=== PATIENT | male | born 1955 | race Caucasian/White ===

== ENCOUNTER → 2021-02-02 15:38 | Outpatient (CLI) | payer OTHER, SELFPAY ==
--- NOTE | ~2021-02-02 | XR_ITS ---
EXAMINATION: XR hip LT 2V w AP pelvis INDICATION: Left hip pain TECHNIQUE: AP view the pelvis and two views of the left hip are obtained. COMPARISON: None available FINDINGS: Bone alignment is normal. There is no fracture. Phleboliths are noted in the pelvis. IMPRESSION: 1. No acute osseous abnormality. Reviewed, dictated and finalized at location A.
--- NOTE | ~2021-02-02 | XR_ITS ---
XR chest 2V DATE: 02/02/2021 16:38 INDICATION: Cough TECHNIQUE: Upright PA and lateral views COMPARISON: None FINDINGS: Left cervical rib. Scoliosis and degenerative change of the thoracic and lumbar spine. Normal heart size. No hilar or mediastinal enlargement. No pulmonary infiltrate or consolidation, pleural effusion or pulmonary vascular congestion or pneumo thorax. IMPRESSION: No active cardiac pulmonary disease Left cervical rib Reviewed, dictated and finalized at location A.
--- NOTE | ~2021-02-02 | XR_ITS ---
EXAMINATION: XR lumbar spine 2-3V DATE: 02/02/2021 16:38 INDICATION: Low back pain TECHNIQUE: Anteroposterior and lateral views of the lumbar spine, and cone-down lateral view of the l umbosacral junction were obtained. COMPARISON: None. FINDINGS: There is mild anterior wedging in the lower thoracic spine and at L1. Vertebral body alignm ent is maintained. There is moderate loss of intervertebral disc space height at L1-2 through L3-4. S mall degenerative osteophytes project from the anterior endplates of multiple vertebral bodies. Mild facet osteoarthritis is noted. IMPRESSION: 1. Mild anterior wedging at the thoracolumbar junction, likely chronic. Moderate lumbar spondylosis. Reviewed, dictated and finalized at location A. IMPRESSION: 1. Mild anterior wedging at the thoracolumbar junction, likely chronic. Moderat e lumbar spondylosis.
== END ==
PROVIDERS: PCP Family Medicine; Visit Provider Nurse Practitioner Family
DX: M54.5 Low back pain (principal); M25.552 Pain in left hip; R05 Cough; M47.816 Spondylosis without myelopathy or radiculopathy, lumbar region; M48.56XA Collapsed vertebra, not elsewhere classified, lumbar region, initial encounter for fracture; Q76.5 Cervical rib
CPT/HCPCS: 71046; 72100; 73502

== ENCOUNTER 2021-05-26 01:06 | Day surgery (SDC) | payer OTHER, SELFPAY ==
[2021-05-06 13:42] VITALS: BMI 29.2
[2021-05-26 07:58] VITALS: BP 150/100; PULSE 94; RESP 17; TEMP 36.8; O2SAT 96
[2021-05-26] MEDS: LACTATED RINGERS 1,000 ML 150 ML IV CONT (08:11)
--- NOTE | 2021-05-26 08:46 | P.PNAN_ITS ---
Anes - Initial Pre Proc Eval Procedure: Operation Date: 05/26/21 09:15 Proposed Procedures p Screening Colonoscopy - Jordy Chappell MD Date/Time: 05/26/21 08:46 Surgeon: Jordy Chappell MD Pre Op Diagnosis: neoplasm screening Patient Data Age: 66 Gender: M Height: 1.83 m Weight: 100.3 kg Last Vital Signs Temp 98.3 F 05/26/21 07:58 Pulse 94 05/26/21 07:58 Resp 17 05/26/21 07:58 BP 150/100 H 05/26/21 07:58 Pulse Ox 96 05/26/21 07:58 Allergies Allergy/AdvReac Type Severity Reaction Status Date / Time No Known Allergies Allergy Verified 05/26/21 07:56 Home Medications Medication Instructions Recorded Confirmed Type aspirin 81 mg chewable tablet 81 mg PO DAILY 09/16/19 05/26/21 History otgsehqdoxun-bvwxvecg-ewnltu tablet 1 tablet PO DAILY 09/16/19 05/26/21 History sildenafil 100 mg tablet 100 mg PO DAILY PRN #9 tablet 10/02/19 05/26/21 Rx fluticasone propionate 50 2 spray NASAL BID #18.2 ml 11/12/19 05/26/21 Rx mcg/actuation nasal spray,suspension rosuvastatin 20 mg tablet 20 mg PO DAILY #30 tablet 02/16/21 05/26/21 Rx Patient hx anesthesia problems: none Family hx anesthesia problems: none Results Review: All pre-operative results and documents have been reviewed as part of the pre-operative evaluation. [facility] Past Medical History Medical History (Updated 02/02/21 @ 15:10 by Drew Bhatia NP) Elevated lipids Family History Family History Father Hypertension Family history of chronic obstructive pulmonary disease, Onset Age: 72 Mother Cerebrovascular accident, Onset Age: 52 Social History Social History Smoking status: Never smoker Second hand tobacco smoke exposure: No Alcohol intake: current Drinks per week: 2 Substance use: never Substance use type: does not use Living arrangements: with family Gender identity (if verbalized by the patient): Male Spiritual care concerns: No Anes - Eval Final PreProcedure Day of Procedure 05/26/21 08:46 Patient weight: obese Heart: regular rate and rhythm Lungs: clear to auscultation Airway: Mallampati scale class II Neurological: alert and oriented Last oral intake: >/= 8 hours ASA classification: II Emergent: no Anesthetic plan: proceed Anesthesia type and monitoring: general GIVS and standard monitoring Results Review: All pre-operative results and documents have been reviewed as part of the pre-operative evaluation. Informed Consent: The patient's anesthetic plan and its attendant risks and benefits were discussed with the patient/family/POA. Questions were solicited and answers provided to the satisfaction of the patient/family/POA.
--- NOTE | 2021-05-26 08:55 | PM.HPGS ---
History of Present Illness History of Present Illness Consent: Risks, benefits, and alternatives have been discussed and questions answered. Patient agrees to proceed with procedure. Chief complaint: neoplasm screening Narrative: Mark Anthony Green is a 66 year old male here for screening colonoscopy, last one about 10 years ago Review of Systems Constitutional: Constitutional: Denies headache(s) and Denies weakness Eyes: Eyes: Denies blurry vision ENT: Reports Normal hearing present, Denies headache(s) and Denies neck pain Cardiovascular: Cardiovascular: Denies chest pain and Denies dyspnea Respiratory: Respiratory: Denies dyspnea Gastrointestinal: Gastrointestinal: Reports no additional gastrointestinal complaints Genitourinary: Genitourinary: Denies dysuria Musculoskeletal: Musculoskeletal: Denies neck pain Integumentary/Breasts: Skin/Breast: Denies dry skin Neurologic: Reports Normal hearing present, Denies headache(s) and Denies weakness Psychiatric: Psychiatric: Denies anxiety Endocrine: Endocrine: Denies change in body appearance Hematologic/Lymphatic: Hematologic/Lymphatic: Denies easy bleeding Allergic/Immunologic: Allergic/Immunologic: Denies urticaria PMFSH Past Medical History Medical History (Updated 02/02/21 @ 15:10 by Drew Bhatia NP) Elevated lipids Family History Family History Father Hypertension Family history of chronic obstructive pulmonary disease, Onset Age: 72 Mother Cerebrovascular accident, Onset Age: 52 Social History Social History Smoking status: Never smoker Second hand tobacco smoke exposure: No Alcohol intake: current Drinks per week: 2 Substance use: never Substance use type: does not use Living arrangements: with family Gender identity (if verbalized by the patient): Male Spiritual care concerns: No Meds Home Medications and Allergies Home Medications Medication Instructions Recorded Confirmed Type aspirin 81 mg chewable tablet 81 mg PO DAILY 09/16/19 05/26/21 History ugcgqmnlcnag-inabtvik-qqidqh tablet 1 tablet PO DAILY 09/16/19 05/26/21 History sildenafil 100 mg tablet 100 mg PO DAILY PRN #9 tablet 10/02/19 05/26/21 Rx fluticasone propionate 50 2 spray NASAL BID #18.2 ml 11/12/19 05/26/21 Rx mcg/actuation nasal spray,suspension rosuvastatin 20 mg tablet 20 mg PO DAILY #30 tablet 02/16/21 05/26/21 Rx Allergies Allergy/AdvReac Type Severity Reaction Status Date / Time No Known Allergies Allergy Verified 05/26/21 07:56 Vital Signs Vital Signs - 24 hr 05/26/21 07:58 Temperature 98.3 F Pulse Rate 94 Respiratory Rate 17 Blood Pressure 150/100 H Pulse Oximetry 96 Exam Const: General: comfortable and no acute distress HENMT: General nose exam: Normal nares present Eyes: General: appearance normal, both eyes and all related structures Neck: Neck: no JVD Resp: Auscultation: clear to auscultation bilaterally Cardio: Rate: regular rate Rhythm: regular rhythm GI: Inspection: non-distended GI Palp: Yes Soft to palpation Skin: General skin exam: normal color Neuro: General: gait normal Speech: normal speech Extrem: General: normal to inspection Psych: Mental Status: mental status grossly normal Assessment and Plan Assessment and plan (1) Screening for malignant neoplasm of colon: Code(s): Z12.11 - Encounter for screening for malignant neoplasm of colon Status: Acute Assessment and Plan: colonoscopy
[2021-05-26 09:18] VITALS: BP 110/81; PULSE 97; RESP 17; O2SAT 94
[2021-05-26 09:28] VITALS: BP 124/82; PULSE 87; RESP 23; O2SAT 96
[2021-05-26 09:38] VITALS: BP 124/88; PULSE 78; RESP 19; O2SAT 97
== END 2021-05-26 09:45 | disposition home or self-care (01) ==
PROVIDERS: PCP Family Medicine; Visit Provider Internal Medicine Gastroenterology
PROC: 0DJD8ZZ Inspection of Lower Intestinal Tract, Via Natural or Artificial Opening Endoscopic (ICD-10-PCS; CPT 45378; principal; 2021-05-26 09:15)
DX: Z12.11 Encounter for screening for malignant neoplasm of colon (principal); D12.3 Benign neoplasm of transverse colon; K57.30 Diverticulosis of large intestine without perforation or abscess without bleeding; K64.8 Other hemorrhoids; E78.5 Hyperlipidemia, unspecified; Z79.82 Long term (current) use of aspirin; E66.9 Obesity, unspecified; Z68.30 Body mass index [BMI] 30.0-30.9, adult
CPT/HCPCS: 45380; 45385; 88305; J2704; J7120

== ENCOUNTER → 2021-09-27 12:40 | Outpatient (CLI) | payer OTHER, SELFPAY ==
--- NOTE | ~2021-09-27 | US_ITS ---
EXAMINATION: US carotid duplex BI DATE: 09/27/2021 13:10 INDICATION: Carotid stenosis. Atherosclerosis. TECHNIQUE: Grayscale, color Doppler, and pulsed Doppler images of the cervical carotid arteries were obtained. The degree of vessel stenosis is placed in one of the following categories: normal, <50%, 5 0-69%, >=70% but less than near-occlusion, near-occlusion, or total occlusion. Note that percent sten osis relative to normal distal artery lumen diameter is indirectly measured from velocity measurement s as described by Phoenix, et al. Radiology 2003; 229:340-346. Notes: Normal: Peak systolic velocity <125 centimeters/sec and no plaque <50%. Peak systolic velocity <125 ( EDV <40; ICA/CCA PSV ratio <2.0; used these factors only a tandem lesions or low cardiac output or co ntralateral disease) 50-69 %: PSV 125-230 (EDV 40-100; ratio 2-4) >= 70% but less than near occlusion: PSV greater than 230 (EDV > 100; ratio> 4.0) Near Occlusion: PSV that is variable; markedly narrowed lumen Occlusion: Absent flow on color/spectral Doppler and no lumen on leal scale. COMPARISON: None. FINDINGS: RIGHT: The right common carotid artery (CCA) peak systolic velocity (PSV) is 70 cm/s. The right internal car otid artery (ICA) PSV is 51 cm/s. The right ICA end-diastolic velocity (EDV) is 21 cm/s. The right IC A/CCA PSV ratio is 0.7. The external carotid artery (ECA) PSV is 74 cm/s. There is antegrade flow in the right vertebral artery. LEFT: The left CCA PSV is 54 cm/s. The left ICA PSV is 63 cm/s. The left ICA EDV is 21 cm/s. The left ICA/C CA PSV ratio is 1.2. The ECA PSV is 93 cm/s. There is antegrade flow in the left vertebral artery. IMPRESSION: 1. Less than 50% stenosis in the right internal carotid artery by sonographic criteria. 2. Less than 50% stenosis in the left internal carotid artery by sonographic criteria. Reviewed, dictated and finalized at location A. IMPRESSION: 1. Less than 50% stenosis in the right internal carotid artery by sonographic c joselyn. 2. Less than 50% stenosis in the left internal carotid artery by sonographic kaitlyn hernández.
== END ==
PROVIDERS: PCP Family Medicine; Visit Provider Internal Medicine Cardiovascular Disease
DX: R09.89 Other specified symptoms and signs involving the circulatory and respiratory systems (principal); I65.23 Occlusion and stenosis of bilateral carotid arteries
CPT/HCPCS: 93880

== ENCOUNTER → 2023-03-16 07:36 | Outpatient (CLI) | payer MEDICARE, OTHER, SELFPAY ==
--- NOTE | ~2023-03-16 | MR_ITS ---
EXAMINATION: MR knee LT wo con DATE: 03/16/2023 08:12 INDICATION: Right knee pain. TECHNIQUE: Magnetic resonance imaging (MRI) of the right knee was performed without intravenous contr ast. Sequences included axial PD-weighted FS FSE, coronal PD-weighted FSE and PD-weighted FS FSE, sag ittal PD-weighted FSE, and sagittal T2-weighted FS FSE. COMPARISON: Right knee radiographs 03/02/2023 FINDINGS: Medial compartment: There is a complex tear involving posterior horn of medial meniscus with torn bucket-handle component in the intercondylar notch. There is full-thickness cartilage loss of femoral condyle involving the central articular surface adjacent to the posterior horn of the meniscus with mild subchondral edema- like marrow signal intensity. There is cartilage surface irregularity of tibial condyle. Lateral compartment: Lateral meniscus is normal. There is cartilage surface irregularity of femoral condyle and tibial con dyle. Patellofemoral compartment: There is cartilage surface irregularity of patella. There is partial-thickness cartilage loss of medi al trochlea. There are tiny osteophytes. Ligaments and tendons: The anterior and posterior cruciate ligaments are normal. There is an 11 mm ganglion cyst adjacent to the distal attachment of anterior cruciate ligament. There are changes of prior sprains of medial co llateral ligament and fibular collateral ligament characterized by thickening and increased signal in tensity proximally. There is mild patellar tendinopathy. Fluid: There is a moderate-sized knee joint effusion. There is a large Oliva's cyst. IMPRESSION: 1. Severe chondrosis of medial compartment and mild chondrosis of lateral and patellofemoral compartm ents. 2. Complex tear of medial meniscus including a displaced torn bucket-handle component. 3. Moderate-sized knee joint effusion. 4. Large Oliva's cyst. Reviewed, dictated and finalized at location E. IMPRESSION: 1. Severe chondrosis of medial compartment and mild chondrosis of lateral and p atellofemoral compartments. 2. Complex tear of medial meniscus including a displaced torn bucket-handle com ponent. 3. Moderate-sized knee joint effusion. 4. Large Oliva's cyst.
--- NOTE | ~2023-03-16 | MR_ITS ---
EXAMINATION: MR knee RT wo con DATE: 03/16/2023 08:26 INDICATION: Right knee pain. TECHNIQUE: Magnetic resonance imaging (MRI) of the right knee was performed without intravenous contr ast. Sequences included axial PD-weighted FS FSE, coronal PD-weighted FSE and PD-weighted FS FSE, sag ittal PD-weighted FSE, and sagittal T2-weighted FS FSE. COMPARISON: Right knee radiographs 03/02/2023 FINDINGS: Medial compartment: There is a complex tear involving the body and posterior horn of medial meniscus. There is partial-th ickness cartilage loss of tibial condyle, deep at the central and medial articular surface with mild subchondral edema-like marrow signal intensity. There is partial-thickness cartilage loss of femoral condyle, deep at the central, medial, and posterior articular surface with mild subchondral edema-lik e signal intensity. Osteophytes are noted. Lateral compartment: There is a radial tear of lateral meniscus involving the posterior horn. There is shallow partial-thi ckness cartilage loss of tibial condyle and femoral condyle. There are tiny osteophytes. Patellofemoral compartment: There is cartilage fissuring involving patellar lateral facet. There is partial-thickness cartilage l oss of trochlea, deep at the central and medial trochlea. Osteophytes are noted. Ligaments and tendons: Anterior cruciate ligament is less steep than Blumensaat line, consistent with tear. There is a 10 mm ganglion cyst adjacent to the distal attachment of the cruciate ligament. There is a partial tear of posterior cruciate ligament characterized by thickening. There are changes of prior sprains of media l collateral ligament and fibular collateral ligament characterized by thickening and increased signa l intensity. There is mild patellar tendinopathy. Fluid: There is a small knee joint effusion. There is a moderate-sized Oliva's cyst. There is mild prepatell ar and superficial infrapatellar bursitis. IMPRESSION: 1. Moderate chondrosis of medial and patellofemoral compartments and mild chondrosis of lateral rain rtment. 2. Tears of medial and lateral menisci. 3. Complete tear of anterior cruciate ligament. 4. Partial tear of posterior cruciate ligament. 5. Small knee joint effusion. 6. Moderate-sized Oliva's cyst. Reviewed, dictated and finalized at location E. IMPRESSION: 1. Moderate chondrosis of medial and patellofemoral compartments and mild chond rosis of lateral compartment. 2. Tears of medial and lateral menisci. 3. Complete tear of anterior cruciate ligament. 4. Partial tear of posterior cruciate ligament. 5. Small knee joint effusion. 6. Moderate-sized Oliva's cyst.
== END ==
PROVIDERS: PCP Family Medicine; Visit Provider Orthopaedic Surgery
DX: S83.207A Unspecified tear of unspecified meniscus, current injury, left knee, initial encounter (principal); M94.261 Chondromalacia, right knee; S83.241A Other tear of medial meniscus, current injury, right knee, initial encounter; S83.511A Sprain of anterior cruciate ligament of right knee, initial encounter; M25.461 Effusion, right knee; M71.21 Synovial cyst of popliteal space [Baker], right knee; M94.262 Chondromalacia, left knee; S83.232A Complex tear of medial meniscus, current injury, left knee, initial encounter; S83.212A Bucket-handle tear of medial meniscus, current injury, left knee, initial encounter; M25.462 Effusion, left knee; M71.22 Synovial cyst of popliteal space [Baker], left knee
CPT/HCPCS: 73721

== ENCOUNTER 2023-04-17 08:13 | Outpatient (CLI) | payer MEDICARE, OTHER, SELFPAY ==
--- NOTE | 2023-04-17 08:25 | ECG_ITS ---
Measurements Intervals [place] [employer] Rate: 59 P: -7 UT: 162 QRS: -7 QRSD: 84 T: 24 QT: 411 QTc: 410 Interpretive Statements SINUS BRADYCARDIA BASELINE ARTIFACT- II, III, AVF, V4-V6 BORDERLINE ECG NO PREVIOUS ECG AVAILABLE FOR COMPARISON Electronically Signed On 04-17-2023 9:37:35 NP by Nba Cronni D.O.
== END 2023-04-17 08:14 | disposition home or self-care (01) ==
LOC: ANHSURGERY 08:18
PROVIDERS: PCP Family Medicine; Visit Provider Orthopaedic Surgery
DX: Z01.818 Encounter for other preprocedural examination (principal); I10 Essential (primary) hypertension; R00.1 Bradycardia, unspecified
CPT/HCPCS: 93005

== ENCOUNTER 2023-04-18 00:42 | Day surgery (SDC) | payer MEDICARE, OTHER, SELFPAY ==
[2023-04-12 08:02] VITALS: BMI 26.9
--- NOTE | 2023-04-12 08:11 | PC.NURSE ---
PRE-OP INSTRUCTIONS, PLEASE READ CAREFULLY Report to the Outpatient Waiting Room, entrance under the green pavilion located off [facility], at time _1100_ on date _04/18/23_. Planned Procedure Time: _1 PM_. Time changes happen often and if your time is changed the preop area will call you the afternoon before. - You and your visitor will be asked to self-screen and do not enter if you have any COVID symptoms. - A mask is optional within the hospital at this time. Patients may have clear liquids (water, carbonated beverages, clear teas, apple juice) until 3 hours prior to surgery (1000 AM) with a maximum of 20 ounces. - No food from midnight until time of surgery Take the following medications with a SIP of water the morning of surgery: _AMLODIPINE, & NASAL SPRAY IF NEEDED_ DO NOT STOP ANY OF YOUR OTHER PRESCRIPTION MEDICATIONS PRIOR TO SURGERY ?EXCEPT THE FOLLOWING Medications to discontinue per DR. CASILLAS - _ASPIRIN 7 DAYS PRIOR TO SURGERY, PT STATES LAST DOSE TAKEN 04/11/23 PM_ Please no make-up, nail chinese, hairspray, perfume, deodorant, or body powder the day of surgery. No jewelry (including any body piercings) or valuables the day of surgery, leave them at home. Please take a shower or bath the night before, or the morning of, surgery with an antibacterial soap. Wear comfortable, loose fitting clothing. - Jewelry must be removed prior to entering the operating room. Rings and piercings that are not removed may be cut off. - The hospital will not accept responsibility for valuables. - Please leave all valuables, including medications, at home the day of surgery. If you are going home after surgery, a licensed trash collector truck driver must drive you home. - NO public transportation without another adult if you receive anesthesia. - We recommend that an adult stay with you for 24 hours following discharge. - We also recommend that you do not drive, make important decision, drink alcoholic beverages, or take any drugs that were not prescribed by your health care provider for at least 24 hours after your discharge time. Follow any additional instructions given to you from your surgeon. If you or anyone in your household have experienced Covid symptoms in the past week, please notify your surgeon or the nurse liaison at the phone number below for possible testing. Telephone instructions given to _PATIENT_and asked if any additional questions and then verbalized understanding. Patient advised to call surgeon office or pre surgery nurse liaison [phone] if any additional questions.
--- NOTE | 2023-04-17 14:42 | WPDANESEPPF ---
Anes - Initial Pre Proc Eval Procedure: Operation Date: 04/18/23 13:00 Proposed Procedures p Left Knee Arthroscopy with Partial Medial Meniscectomy - Johan Whittaker MD Date/Time: 04/17/23 14:42 Surgeon: Johan Whittaker MD Pre Op Diagnosis: Lt Knee Medial Meniscus tear Patient Data Age: 67 Gender: M Height: 1.83 m Weight: 90 kg Allergies Allergy/AdvReac Type Severity Reaction Status Date / Time No Known Allergies Allergy Verified 04/18/23 10:53 Home Medications Medication Instructions Recorded Confirmed Type aspirin 81 mg chewable tablet 81 mg PO DAILY 09/16/19 04/12/23 History tbdfzmiiutil-kzfpqqht-agalxo 1 tablet PO DAILY 09/16/19 04/18/23 History tablet (Multivitamin 50 Plus tablet) fluticasone propionate 50 2 spray intranasal BID #18.2 mL 11/12/19 04/18/23 Rx mcg/actuation nasal spray,suspension (Allergy Relief (fluticasone)) rosuvastatin 20 mg tablet (Crestor) 20 mg PO DAILY #30 tabs 07/27/21 04/18/23 Rx amlodipine 5 mg tablet 5 mg PO DAILY 09/16/22 04/18/23 History tamsulosin 0.4 mg capsule 0.4 mg PO DAILY 11/14/22 04/18/23 History hydrocodone 5 mg-acetaminophen 325 1 - 2 tablet PO Q4-6H PRN pain #30 04/18/23 Rx mg tablet tabs Patient hx anesthesia problems: none Family hx anesthesia problems: none Results Review: All pre-operative results and documents have been reviewed as part of the pre-operative evaluation. [facility] Past Medical History Medical History (Updated 04/18/23 @ 07:21 by LLOYD Arora) Elevated lipids Essential hypertension Osteoarthritis Family History Family History Father Hypertension Family history of chronic obstructive pulmonary disease, Onset Age: 72 Mother Cerebrovascular accident, Onset Age: 52 Social History Social History Smoking status: Never smoker Second hand tobacco smoke exposure: No Alcohol intake: current Drinks per week: 2 Alcohol use details: 3-5 BEERS/MONTH Substance use: never Substance use type: does not use Lack of Transportation: No Lack of Food: Never True Current Housing: I Have Housing Concerned About Future Housing: No Difficulty Paying Gas/Electric Bills: No Difficulty Paying for Meds: No Currently Unemployed: No Education: Master's Degree or Higher Difficulty w/ Childcare or Family Care: No Living arrangements: with family Gender identity (if verbalized by the patient): Male Spiritual care concerns: No Anes - Eval Final PreProcedure Day of Procedure 04/17/23 14:42 Patient weight: overweight Heart: regular rate and rhythm Lungs: clear to auscultation Airway: Mallampati scale class II Neurological: alert and oriented Last oral intake: >/= 8 hours ASA classification: II Emergent: no Anesthetic plan: proceed Anesthesia type and monitoring: general LMA and standard monitoring Results Review: All pre-operative results and documents have been reviewed as part of the pre-operative evaluation. Informed Consent: The patient's anesthetic plan and its attendant risks and benefits were discussed with the patient/family/POA. Questions were solicited and answers provided to the satisfaction of the patient/family/POA.
--- NOTE | 2023-04-18 10:04 | WPDHPUPDATE1 ---
History and Physical Update Update Date/Time: 04/18/23 10:04 History and Physical has been reviewed, including an updated exam of the patient. There are NO changes in the patient's condition. Risks, benefits, and alternatives have been discussed and questions answered. Patient agrees to proceed with procedure.
[2023-04-18 10:48] VITALS: BP 136/85; PULSE 58; RESP 20; TEMP 36; O2SAT 100
[2023-04-18] MEDS: ACETAMINOPHEN 500 MG TABLET 1000 MG PO (11:26)
[2023-04-18] MEDS: LACTATED RINGERS 1,000 ML 30 ML IV CONT ×2 (11:30→13:55)
[2023-04-18] MEDS: KETOROLAC 15 MG/ML VIAL (*BKC) IV PUSH (11:34)
[2023-04-18] MEDS: ceFAZolin 2 GM/D5W 50 ML 2 GM/50 ML BAG IVPB (13:05)
[2023-04-18] MEDS: BUPIVACAINE/EPINEPHRINE 0.5% 50 ML VIAL 20 ML INFILTRATE (13:32)
[2023-04-18 13:55] VITALS: BP 97/64; PULSE 48; RESP 12; TEMP 36.2; O2SAT 100
[2023-04-18 14:10] VITALS: BP 90/60; PULSE 75; RESP 20; O2SAT 100
[2023-04-18 14:25] VITALS: BP 103/68; PULSE 57; RESP 20; O2SAT 98
--- NOTE | 2023-04-18 14:31 | W.PM.PROC2 ---
Procedure Note - Detailed Date of Procedure 04/18/23 Pre-op Diagnosis Lt Knee Medial Meniscus tear Post-op Diagnosis Same Procedure Performed Arthroscopic partial medial meniscectomy, left knee. Surgeon Johan Whittaker MD Anesthesia General Findings Complex posterior horn meniscus tear. Subtotal posterior meniscectomy. The upper leaflet was viable and preserved. Medial femur chondromalacia grade 2/3, medial tibia grade 1. Lateral femur chondromalacia grade 0, lateral tibia grade 1. Description of Procedure The patient was identified and the surgical site confirmed and signed in the preoperative holding area. Antibiotics were started per protocol. He was brought to the operative room and transferred to the OR table. A general anesthetic was administered. Supine position with the operative lower extremity position in the leg lehman after placement of a well padded tourniquet. The leg support was lowered and the contralateral limb was supported with a soft bolster. The knee was prepped and draped in the usual sterile fashion. A time-out was performed. The portal sites were marked and infiltrated with 0.5% Marcaine 20 mL. The limb was exsanguinated and the tourniquet inflated to 300 mL Hg. Standard inferolateral and inferomedial portals were established. Inflow was obtained with the saline pump. The camera was introduced. Diagnostic inspection of the joint was accomplished. The meniscus was debrided with the arthroscopic shaver and punches until stable. The radiofrequency probe was also used for further d?bridement. The arthroscopic instruments were removed. The tourniquet released and wounds closed with subcutaneous 4-0 Monocryl absorbable suture. Steri strips and a sterile dressing were applied. A light elastic wrap was placed. The patient was extubated and brought to the recovery room in stable condition. Estimated Blood Loss 5 Drains No Complications No immediate complications Condition Stable Disposition PACU [facility] Billing Surgery - Charge Forward: Surgery Billing
[2023-04-18 14:34] VITALS: BP 123/79; PULSE 70; RESP 18
[2023-04-18] MEDS: oxyCODONE HCL (*CRX) 5 MG TAB IR PO (14:59)
[2023-04-18 15:00] VITALS: BP 110/62; PULSE 51; RESP 18
== END 2023-04-18 15:20 | disposition home or self-care (01) ==
PROVIDERS: PCP Family Medicine; Visit Provider Orthopaedic Surgery
PROC: (CPT 29870; principal; 2023-04-18 13:00)
DX: M23.222 Derangement of posterior horn of medial meniscus due to old tear or injury, left knee (principal); M94.262 Chondromalacia, left knee; I10 Essential (primary) hypertension; Z79.82 Long term (current) use of aspirin; Z79.891 Long term (current) use of opiate analgesic; Z82.49 Family history of ischemic heart disease and other diseases of the circulatory system; X58.XXXA Exposure to other specified factors, initial encounter
CPT/HCPCS: 29881; A9270; J0690; J1100; J1885; J2250; J2405; J2704; J3010; J7120

== ENCOUNTER → 2023-06-08 08:35 | Outpatient (CLI) | payer MEDICARE, OTHER, SELFPAY ==
--- NOTE | ~2023-06-08 | MR_ITS ---
EXAMINATION: MR shoulder RT wo con DATE: 06/08/2023 09:10 INDICATION: Right shoulder pain TECHNIQUE: Magnetic resonance imaging (MRI) of the right shoulder was performed without intravenous c ontrast. Sequences included axial PD-weighted FS FSE, coronal oblique PD-weighted FS FSE, coronal obl ique T2-weighted FS FSE, sagittal PD-weighted FS FSE, and sagittal T1-weighted SE. COMPARISON: None. FINDINGS: Coracoacromial arch: The acromion undersurface is curved in morphology (type II). The coracoacromial ligament is normal. M oderate right acromioclavicular osteoarthritis with abnormal contour to the lateral head of the right clavicle which could be related to prominent primarily cephalad directed hypertrophic changes relate d to osteoarthritis or an old healed fracture deformity. Small degenerative loose osteochondral body versus heterotopic ossicle along the cephalad joint capsule. Rotator cuff: Moderate supraspinatus and mild infraspinatus tendinopathy without tear. The teres minor tendon is no rmal. Moderate subscapularis tendinopathy without tear. Normal rotator cuff muscle bulk and signal. Biceps tendon, glenoid labrum and glenohumeral cartilage: Mild to moderate tendinopathy and longitudinal split tearing of the long head biceps tendon. Diffuse circumferential tear of the glenoid labrum. Focal partial-thickness chondral ulceration at the centra l aspect of the glenoid. Deep chondral fissuring along the inferior glenoid. Small marginal osteophyt e along the inferior and posterior glenoid. Mild partial-thickness cartilage loss with smooth chondra l surface along the medial aspect of the humeral head. Fluid: Small amount of fluid and mild synovitis in the long head biceps tendon sheath consistent with mild b icipital tenosynovitis. Physiologic amount fluid in the glenohumeral joint space. No loose osteochond ral bodies. Mild increased fluid signal in the subacromial/subdeltoid bursa consistent with mild burs itis. Bones: Normal marrow signal with no edema. No acute fracture or pathologic marrow replacing process. IMPRESSION: 1. Moderate rotator cuff tendinopathy without discrete tear. 2. Mild glenohumeral osteoarthritis with diffuse circumferential tear of the glenoid labrum. 3. Bicipital tenosynovitis with mild to moderate tendinopathy and longitudinal split tearing of the l serg head biceps tendon. 4. Moderate acromial clavicular osteoarthritis with prominent cephalad directed hypertrophic changes which could be degenerative in etiology or sequela of old trauma. Reviewed, dictated and finalized at location A. ADJUSTER IMPRESSION: 1. Moderate rotator cuff tendinopathy without discrete tear. 2. Mild glenohumeral osteoarthritis with diffuse circumferential tear of the gl enoid labrum. 3. Bicipital tenosynovitis with mild to moderate tendinopathy and longitudinal split tearing of the long head biceps tendon. 4. Moderate acromial clavicular osteoarthritis with prominent cephalad directed hypertrophic changes which could be degenerative in etiology or sequela of old trauma.
== END ==
PROVIDERS: PCP Family Medicine; Visit Provider Family Medicine
DX: M67.811 Other specified disorders of synovium, right shoulder (principal); M19.011 Primary osteoarthritis, right shoulder; S43.431A Superior glenoid labrum lesion of right shoulder, initial encounter; M75.21 Bicipital tendinitis, right shoulder; X58.XXXA Exposure to other specified factors, initial encounter
CPT/HCPCS: 73221

== ENCOUNTER 2023-08-15 10:09 | Outpatient (CLI) | payer MEDICARE, OTHER, SELFPAY ==
--- NOTE | ~2023-08-15 | XR_ITS ---
EXAMINATION: XR knee RT 3V DATE: 08/15/2023 10:28 INDICATION: Tear of lateral meniscus, current injury. TECHNIQUE: 3 views of right knee including standing views were obtained. COMPARISON: Right knee radiographs 09/15/2021 FINDINGS: Bone alignment is normal. No fracture. There is moderate osteoarthritis of medial compartme nt and mild osteoarthritis of patellofemoral compartment. There is chondrocalcinosis of the menisci. No knee joint effusion. IMPRESSION: 1. Moderate right knee osteoarthritis. Reviewed, dictated and finalized at location E.
== END 2023-08-15 10:10 | disposition home or self-care (01) ==
PROVIDERS: PCP Family Medicine; Visit Provider Orthopaedic Surgery
DX: S83.281A Other tear of lateral meniscus, current injury, right knee, initial encounter (principal); M17.11 Unilateral primary osteoarthritis, right knee; X58.XXXA Exposure to other specified factors, initial encounter
CPT/HCPCS: 73562

== ENCOUNTER 2024-03-12 10:39 | Outpatient (CLI) | payer MEDICARE, OTHER, SELFPAY ==
--- NOTE | ~2024-03-12 | XR_ITS ---
XR shoulder RT min 2V Ordering provider: Johan Whittaker MD History: . M67.813 - Other specified disorders of tendon, right shou... . Comparison: None. FINDINGS: BONES: No acute fracture or dislocation. JOINT SPACES: The acromioclavicular joint shows osteoarthritic changes. Small bony fragment or osteop hyte seen superiorly.. The glenohumeral joint is normal. SOFT TISSUES: Normal. IMPRESSION: No acute osseous abnormality right shoulder. Reviewed, dictated and finalized at location A.
== END 2024-03-12 10:40 | disposition home or self-care (01) ==
PROVIDERS: PCP Orthopaedic Surgery; Visit Provider Orthopaedic Surgery
DX: M67.813 Other specified disorders of tendon, right shoulder (principal)
CPT/HCPCS: 73030

== ENCOUNTER 2024-08-01 07:50 | Outpatient (CLI) | payer MEDICARE, OTHER, SELFPAY ==
--- OUTSIDE RECORDS SUMMARY | 2024-08-01 07:57 | XMS_ITS | Clinical Summary ---
Author Organization [facility] [place] [address] Address [address] [place] [id number] Care Team Providers Care Roof Fixer Name Role Phone Lamont Latif MD Primary Care Provider [phone] Nba Cronin DO Unavailable Jordy Felix MD Unavailable + Allergies No known active allergies Medications multivit-min/f olic/vit K/lycop (ONE-A-DAY MEN'S 50 PLUS ORAL) Take by mouth Active fluticasone propionate (FLONASE) 50 mcg/actuation nasal spray Administer 1 spray into each nostril daily Active aspirin 81 mg enteric coated tablet Take 1 tablet (81 mg total) by mouth daily Active benzonatate (TESSALON) 100 mg capsuleIndicat ions:Cough Take 1 capsule (100 mg total) by mouth 3 (three) times a day as needed for cough 42 capsule 02/08/20 24 Active amLODIPine (NORVASC) 5 mg tabletIndicati ons:Hypertensi on, essential TAKE 1 TABLET (5 MG TOTAL) BY MOUTH DAILY. 100 tablet 1 02/17/20 24 Active tamsulosin (FLOMAX) 0.4 mg extended release capsule TAKE 1 CAPSULE BY MOUTH EVERY DAY 90 capsule 1 02/22/20 24 Active rosuvastatin (CRESTOR) 20 mg tablet TAKE 1 TABLET BY MOUTH EVERY DAY 90 tablet 1 07/25/19 25 Active rosuvastatin (CRESTOR) 20 mg tablet TAKE 1 TABLET BY MOUTH EVERY DAY 90 tablet 1 01/29/20 24 025 Discontinued Active Problems Problem Noted Date Diagnosed Date Encounter for Medicare annual wellness exam 05/22 Assessment & Plan (07/31/2023 9:04 AM CDT): A(n) yearly Medicare Annual Wellness Visit has been performed today. Mark Anthony Green is up to date on screening tests. He is in need of None- no screening indicated at this time. He is up to date on needed preventative vaccinations. We discussed healthy lifestyle habits, educational material has been given. Medications reviewed, changes documented as per the medical record and discussed with patient along with risks vs benefits. Return in 6 months Assessment & Plan (05/31/2023 9:17 AM APPELLATE CONFEREE): A(n) yearly Medicare Annual Wellness Visit has been performed today. Mark Anthony Green is up to date on screening tests. He is in need of None- no screening indicated at this time. He is not up to date on needed preventative vaccinations; He is in need of Tdap/Td, Influenza, and Covid-19 (booster). We discussed healthy lifestyle habits, educational material has been given. Medications reviewed, changes documented as per the medical record and discussed with patient along with risks vs benefits. Return in 6 months LRTI (lower respiratory tract infection) 023 Assessment & Plan (09/22/2022 8:47 AM CDT): Empiric Levaquin; also start probiotic for 2 weeks Continue PRN jbeo-eia-ilzjytj medications (e.g. Mucinex); coricidin HBP may be helpful with cough Stay hydrated Chest xray ordered; I would like it done today if possible Benign prostatic hyperplasia with nocturia 06/24 Assessment & Plan (06/24/2022 6:46 PM APPELLATE CONFEREE): Pete brady Reviewed labs. Overall, looking well BP is borderline elevated Hypertension, essential 01/12/2022 Encounter for medical examination to establish c are 12/15/2021 Assessment & Plan (12/18/2021 9:09 PM CDT): A(n) initial well adult visit has been performed today. Mark Anthony Green is not up to date on screening tests. He is in need of Prostate screening, Hepatitis C screening and Colon cancer screening- getting outside records. He is not up to date on needed preventative vaccinations; He is in need of Tdap/Td, Pneumonia (Prevnar-13 or Pneumovax-23) and Zoster. Hyperlipidemia Immunizations Immunization Administration Dates Next Due COVID-19 MRNA (MODERNA) .5 M L (50 MCG) VACCINE (12 YEARS AND UP) 02/20/2023 Influenza, Quad, Adjuvantate d, Intramuscular 02/20/2023,03/23/2022,03/26/2021 Influenza, Quadrivalent, Spl it, Preservative Free, Intramuscular 03/20/2020 Influenza, Trivalent, Preser vative Free, Intramuscular 03/30/2017 Influenza, Unspecified 05/31/2023(Deferr ed: Patient Refused),05/22/2022(Deferred: Patient Refused),05/22/2021(Deferred: Patient Refused) Moderna SARS-CoV-2 Monovalen t Vaccination (12+ YRS) 03/15/2022 Moderna Sars-cov-2 Bivalent Vaccine 50 Mcg/0.5 mL (12+ YRS)-Blue/Aburto 03/15/2022 Moderna Sars-cov-2 Monovalen t Vaccination (6 Mos-5 Yrs) 10/10/2021,07/29/2020,07/02/2020 Pneumococcal Conjugate Pcv20 12/30/2021 ZOSTER Recombinant 05/26/2022,03/26/2022 Surgical History Surgery Date Site/Laterality Comments VASECTOMY 1992 KNEE SURGERY Left Medical History Medical History Date Comments Brain concussion 1970 Football, 1970 Hyperlipidemia Spondylosis of lumbar spine PVC (premature ventricular contraction) Asymptomatic bilateral carot id artery stenosis Benign prostatic hyperplasia Dont know i f it is benign yet, last week. Hypertension dont recall how long ago, taking medication about a year I think. Family History Medical History Relation Name Comments Hypertension Father Mark Anthony Green Stroke Mother Naheed Green Rheum arthritis Sister 1 No Known Problems Sister 2 No Known Problems Sister 3 Relation Name Status Comments Father Mark Anthony Green Mother Naheed Green Sister 1 Alive Sister 2 Alive Sister 3 Alive Social History Tobacco Use Types Packs/Day Years Used Date Smoking Tobacco: Never Cigarettes Smokeless Tobacco: Never Tobacco Cessation:Counseling Given: Not Answered Comments: is a smoker AUDIT-C Answer Date Recorded Q1: How often do you have a drink containing alc ohol? 2-3 times a week 05/31/2023 Q2: How many drinks containi ng alcohol do you have on a typical day when you are drinking? 1 or 2 05/31/2023 Q3: How often do you have si x or more drinks on one occasion? 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 Not on file Obstetrics History Last Filed Vital Signs Vital Sign Reading Time Taken Comments Blood Pressure 138/84 02/08/2024 9:10 AM CDT Pulse 74 02/08/2024 9:10 AM CDT Temperature 36.1 C (96.9 F) 02/08/2024 9:10 AM CDT Respiratory Rate 18 02/08/2024 9:10 AM CDT Oxygen Saturation 96% 02/08/2024 9:10 AM CDT Inhaled Oxygen Concentration - - Weight 92.1 kg (203 lb) 02/08/2024 9:10 AM CDT Height 182.9 cm (6') 02/08/2024 9:10 AM CDT Body Mass Index 27.53 02/08/2024 9:10 AM CDT Plan of Treatment Health Maintenance Due Date Last Done Comments DTaP/Tdap/Td Vaccine (1 - Tdap) 1966 Hepatitis B Screening 1973 Covid-19 Vaccine (2023-2 5 season) 2024 02/20/2023, 03/15/2022, 03/15/2022, Additional history exists Influenza Vaccine (#1) 2024 3, 03/23/2022, 03/26/2021, Additional history exists Fall Risk Assessment 07/30/2024 07/31/2023, 05/31/2023, 11/24/2022, Additional history exists Well Visit 65+ 07/30/2024 07/31/2023 Depression Screening 02/07/2025 02/08/2024, 07/31/2023, 05/31/2023, Additional history exists Prostate Cancer Screening-PSA 02/07/2026, 11/24/2022, 12/23/2021 Colon Cancer Screening-Colonoscopy 05/26/20262021 Hepatitis C Screening Completed 12/23/2021 Pneumococcal vaccine 65+ Completed 12/30/2021 Zoster Vaccine Completed 05/26/2022, 03/26/2022 Procedures Procedure Name Priority Date/Time Associated Diagnosis Comments PSA SCREEN Routine 02/08/2024 9:42 AM CDT Benign prostatic hyperplasia with nocturia HEPATITIS C ANTIBODY Routine 12/23/2021 8:41 AM CDT Encounter for hepatitis C screening test for low risk patient COLONOSCOPY Routine 05/26/2021 from Last 3 Months or Most Recently Relevant to Health Maintenance Results * PSA screen (02/08/2024 9:42 AM CDT) PSA-Total 0.35 <=5.40 ng/mL Comment: Interpretive Data AGE SEX REFERENCE INTERVAL 0 minutes-150 years Female None 0 minutes-49 years Male None 50-59 years Male 0-3.90 60-69 years Male 0-5.40 70-79 years Male 0-6.20 80-150 years Male 0-6.20 The Kadie PSA Total assay procedure was used. Results from different manufacturers or methods may not be comparable. Serial testing should be performed using the same method. Current interpretive data last revised 21. Blood 02/08/2024 9:42 AM CDT 02/08/2024 2:35 PM CDT Lamont Latif MD LAB BLOOD ORDERABLES Final Result Performing Organization Address City/[facility] [place] [address] [address] Department [place] [address] * Hepatitis C antibody (12/23/2021 8:41 AM CDT) Hep C Ab Nonreactive Nonreactive JAMES LUKE Comment: Interpretive Data Nonreactive: Antibodies to HCV not detected. Does NOT exclude the possibility of recent exposure to HCV. Equivocal: Equivocal for HCV antibodies. Supplemental molecular testing will be automatically performed to determine infection status in accordance with current CDC screening recommendations. Reactive: Positive for HCV antibodies. This may represent current or past HCV infection. Supplemental molecular testing will be automatically performed to determine current infection status in accordance with current CDC screening recommendations. Interpretive data was last revised on 2019. Blood 12/23/2021 8:41 AM CDT 12/23/2021 4:53 PM CDT Lamont Latif MD LAB MICROBIOLOGY - GENERAL ORDERABLES Final Result Performing Organization Address [facility] de Phone Number JAMES [place] [address] [address] Department [place] [address] * Colonoscopy (05/26/2021) Anatomical Region Laterality Modality Other Historical Provider ENDOSCOPY PROCEDURES Mary l Result from Last 3 Months or Most Recently Relevant to Health Maintenance Insurance MEDICARE [facility] MEDICARE [facility] Address: [address] [address] [place] Care Teams Roof Fixer Relationship Specialty Start Date End Date Lamont Latif MD [address] [place] [address] PCP - General Family Medicine 12/14/21 Nba Cronin DO [address] [place] [address] Referring Physician Cardiology 12/15/21 Jordy Felix MD [address] [facility] [address] [place] [address] Referring Physician Gastroenterology 12/15/21
--- OUTSIDE RECORDS SUMMARY | 2024-08-01 07:57 | XMS_ITS | Referral Summary ---
Author Organization [facility] [address] Address [address] [place] [phone] Care Team Providers Care Restaurant Supervisor Name Role Phone Lamont Latif MD Primary Care Provider [phone] Nba Cronin DO Unavailable [phone] Jordy Felix MD Unavailable + Allergies No [...] months Assessment & Plan (05/31/2023 9:17 AM SPRINKLER TENDER): A(n) yearly Medicare Annual Wellness Visit has [...] start probiotic for 2 weeks Continue PRN ibfi-asf-vkvtump medications (e.g. Mucinex); coricidin HBP may be helpful with cough Stay hydrated Chest xray ordered; I would like it done today if possible Benign prostatic hyperplasia with nocturia 06/24 Assessment & Plan (06/24/2022 6:46 PM SPRINKLER TENDER): Pete brady Reviewed labs. 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 Not on file Last Filed Vital Signs Vital Sign Reading [...] 02/08/2024 9:10 AM CDT Plan of Treatment Not on file Procedures Procedure Name Priority Date/Time Associated Diagnosis [...] BLOOD ORDERABLES Final Result Performing Organization Address [facility] de Phone Number JAMES [place] [address] Department [place] [address] * Hepatitis C antibody (12/23/2021 8:41 AM [...] GENERAL ORDERABLES Final Result Performing Organization Address [facility] de Phone Number JAMES [place]KE [address] [address] [place] [address] * Colonoscopy (05/26/2021) Anatomical Region Laterality Modality Other Historical Provider ENDOSCOPY PROCEDURES Mary l Result from Last 3 Months or Most Recently Relevant to Health Maintenance Insurance MEDICARE [facility] MEDICARE [facility] Care Teams Restaurant Supervisor Relationship Specialty Start Date End Date Lamont Latif MD [facility] [place], [place] [id number] PCP - General Family Medicine 12/14/21 Nba Cronin DO [address] [place] [address] Referring Physician Cardiology 12/15/21 Jordy Felix MD [address] [place] [address] Referring Physician Gastroenterology 12/15/21
--- NOTE | 2024-08-01 08:00 | ECG_ITS ---
Test Date: 2024-08-01 08:12:57 Measurements Intervals [place] Rate: 62 P: -6 ME: 149 QRS: -5 QRSD: 80 T: 34 QT: 415 QTc: 422 Interpretive Statements SINUS RHYTHM No previous ECG available for comparison Electronically Signed On 08-02-2024 16:35:42 CDT by Nik Guadalupe M.D.
== END 2024-08-01 07:51 | disposition home or self-care (01) ==
LOC: ANHSURGERY 07:53
PROVIDERS: PCP Family Medicine; Visit Provider Orthopaedic Surgery
DX: Z01.810 Encounter for preprocedural cardiovascular examination (principal); I10 Essential (primary) hypertension
CPT/HCPCS: 93005

== ENCOUNTER 2024-08-08 02:12 | Day surgery (SDC) | payer MEDICARE, OTHER, SELFPAY ==
[2024-07-25 15:07] VITALS: BMI 27.5
--- NOTE | 2024-07-25 15:20 | PC.NURSE ---
Report to the Outpatient Waiting Room, entrance under the green pavilion located off [facility], at time __0930am on date ___08/08/24 ____. Planned Procedure Time: _1130am .? Time changes happen often and if your time is changed the preop area will call you the afternoon before. - You and your visitor will be asked to self-screen and do not enter if you have any COVID symptoms. Please call surgeon if you need to reschedule. - A mask is optional within the hospital at this time. Patients may have clear liquids (water, carbonated beverages, clear teas, apple juice) until 3 hours prior to surgery with a maximum of 20 ounces. - No food from midnight until time of surgery and no smoking, or chewing tobacco (or any form of nicotine). No chewing gum, candy or mints. (0830am) Take only the following medications with a SIP of water on the morning of surgery: __Amlodipine and Tylenol DO NOT STOP ANY OF YOUR OTHER PRESCRIPTION MEDICATIONS PRIOR TO SURGERY EXCEPT THE FOLLOWING Hold all vitamins and supplements for 3 days per anesthesiologist. Date of Last dose is 08/04/24. Medications to discontinue per physician ___Aspirin for 7 days prior surgery per [facility] Date to take last dose 07/30/24 Please no make-up, nail french, hairspray, perfume, deodorant, or body powder the day of surgery.? No jewelry (including any body piercings) or valuables the day of surgery, leave them at home.? Please take a shower or bath the night before, or the morning of, surgery with an antibacterial soap.? Wear comfortable, loose fitting clothing.? - Jewelry must be removed prior to entering the operating room.? Rings and piercings that are not removed may be cut off. - The hospital will not accept responsibility for valuables.? - Please leave all valuables, including medications, at home the day of surgery. If you are going home after surgery, a licensed rail car driver must drive you home.? - NO public transportation without another adult if you receive anesthesia. - We recommend that an adult stay with you for 24 hours following discharge. - We also recommend that you do not drive, make important decision, drink alcoholic beverages, or take any drugs that were not prescribed by your health care provider for at least 24 hours after your discharge time. Follow any additional instructions given to you from your surgeon. Telephone instructions given to ___Patient and asked if any additional questions and then verbalized understanding. Patient advised to call surgeon office or pre surgery nurse liaison [phone] if any additional questions.
[2024-08-08] VITALS (9 sets, daily range): BP systolic 118–140; BP diastolic 67–87; PULSE 64–83; RESP 12–20; TEMP 36.2–36.3; O2SAT 94–100
--- OUTSIDE RECORDS SUMMARY | 2024-08-08 02:15 | XMS_ITS | Clinical Summary ---
Author Organization [facility] [place] [address] Address [address] [place] [phone] Care Team Providers Care Security Field Supervisor Name Role Phone Lamont Latif MD Primary Care Provider [phone] Nba Cronin DO Unavailable [phone] Jordy Felix MD Unavailable + Allergies No [...] months Assessment & Plan (05/31/2023 9:17 AM MAILER APPRENTICE): A(n) yearly Medicare Annual Wellness Visit has [...] start probiotic for 2 weeks Continue PRN ikvf-kzn-jpqhvvb medications (e.g. Mucinex); coricidin HBP may be helpful with cough Stay hydrated Chest xray ordered; I would like it done today if possible Benign prostatic hyperplasia with nocturia 06/24 Assessment & Plan (06/24/2022 6:46 PM MAILER APPRENTICE): Pete brady Reviewed labs. Overall, looking well [...] on file Legal Sex Male 1:57 AM MAILER APPRENTICE Gender Identity Male 01/11/2022 3:54 PM CDT [...] BLOOD ORDERABLES Final Result Performing Organization Address City/[facility] [place] [address] [address] Department [place] [address] * Hepatitis C antibody (12/23/2021 8:41 AM CDT) Hep C Ab Nonreactive Nonreactive JMAES LUKE Comment: Interpretive Data Nonreactive: Antibodies to [...] GENERAL ORDERABLES Final Result Performing Organization Address [facility] de Phone Number JAMES [place] [address] [address] Department [place] [address] * Colonoscopy (05/26/2021) Anatomical Region Laterality Modality Other Historical Provider ENDOSCOPY PROCEDURES Mary l Result from Last 3 Months or Most Recently Relevant to Health Maintenance Insurance MEDICARE [facility] MEDICARE [place] Care Teams Security Field Supervisor Relationship Specialty Start Date End Date Lamont Latif MD [address] [place] [address] PCP - General Family Medicine 12/14/21 Nba Cronin DO [address] [place] [address] Referring Physician Cardiology 12/15/21 Jordy Felix MD [address] [facility] [address] [place] [address] Referring Physician Gastroenterology 12/15/21
--- OUTSIDE RECORDS SUMMARY | 2024-08-08 02:15 | XMS_ITS | Referral Summary ---
Author Organization [facility] [address] Address [address] [place] [id number] Care Team Providers Care Tie Inspector Name Role Phone Lamont Latif MD Primary Care Provider [phone] Nba Cronin DO Unavailable [phone] Jordy Felix MD Unavailable + Allergies No [...] months Assessment & Plan (05/31/2023 9:17 AM JEWEL CUPPING MACHINE OPERATOR): A(n) yearly Medicare Annual Wellness Visit has [...] start probiotic for 2 weeks Continue PRN gurm-wue-utpbymv medications (e.g. Mucinex); coricidin HBP may be helpful with cough Stay hydrated Chest xray ordered; I would like it done today if possible Benign prostatic hyperplasia with nocturia 06/24 Assessment & Plan (06/24/2022 6:46 PM JEWEL CUPPING MACHINE OPERATOR): Pete brady Reviewed labs. Overall, looking well [...] on file Legal Sex Male 1:57 AM JEWEL CUPPING MACHINE OPERATOR Gender Identity Male 01/11/2022 3:54 PM CDT [...] BLOOD ORDERABLES Final Result Performing Organization Address [facility] de Phone Number JAMES LUKE [phone] Department [place] [address] * Hepatitis C antibody (12/23/2021 8:41 AM [...] GENERAL ORDERABLES Final Result Performing Organization Address [facility] de Phone Number JAMES LUKE [address] Department [place] [address] * Colonoscopy (05/26/2021) Anatomical Region Laterality Modality Other Historical Provider ENDOSCOPY PROCEDURES Mary l Result from Last 3 Months or Most Recently Relevant to Health Maintenance Insurance MEDICARE [facility] MEDICARE [facility] Care Teams Tie Inspector Relationship Specialty Start Date End Date Lamont Latif MD [facility] [place], [place] [id number] PCP - General Family Medicine 12/14/21 Nba Cronin DO [address] [place] [address] Referring Physician Cardiology 12/15/21 Jordy Felix MD [address] [place] [address] Referring Physician Gastroenterology 12/15/21
[2024-08-08] MEDS: EPINEPHrine HCL INJ 1 MG/ML AMPUL 3 MG IRRIGATION (07:33)
[2024-08-08] MEDS: KETOROLAC 15 MG/ML VIAL (*BKC) IV PUSH (10:15)
[2024-08-08] MEDS: ACETAMINOPHEN 500 MG TABLET 1000 MG PO (10:15)
[2024-08-08] MEDS: LACTATED RINGERS 1,000 ML 30 ML IV CONT ×2 (10:15→12:49)
--- NOTE | 2024-08-08 10:26 | WPDANESEPPF ---
Anes - Initial Pre Proc Eval Procedure: Operation Date: 08/08/24 11:30 Proposed Procedures p Right Shoulder Arthroscopy, Biceps Tenodesis, Labral Debridement, Proceed as Indicated - Johan Whittaker MD Date/Time: 08/08/24 10:26 Surgeon: Johan Whittaker MD Pre Op Diagnosis: right shoulder biceps tendinosis, slap tear Patient Data Age: 69 Gender: M Height: 1.83 m Weight: 92 kg Allergies Allergy/AdvReac Type Severity Reaction Status Date / Time No Known Allergies Allergy Verified 07/25/24 15:03 Home Medications ?Medication ?Instructions ?Recorded ?Confirmed ?Type aspirin 81 mg chewable tablet 81 mg PO DAILY 09/16/19 07/25/24 History vfwetyxkozip-kvvigufa-ggmisp 1 tablet PO DAILY 09/16/19 07/25/24 History tablet (Multivitamin 50 Plus tablet) fluticasone propionate 50 2 spray intranasal BID #18.2 mL 11/12/19 07/25/24 Rx mcg/actuation nasal spray,suspension (Allergy Relief (fluticasone)) rosuvastatin 20 mg tablet (Crestor) 20 mg PO DAILY #30 tabs 07/27/21 07/25/24 Rx amlodipine 5 mg tablet 5 mg PO DAILY 09/16/22 07/25/24 History tamsulosin 0.4 mg capsule 0.4 mg PO DAILY 11/14/22 07/25/24 History hydrocodone 5 mg-acetaminophen 325 1 - 2 tablet PO Q4-6H PRN pain 7 08/08/24 Rx mg tablet days #30 tabs Patient hx anesthesia problems: none Family hx anesthesia problems: none Results Review: All pre-operative results and documents have been reviewed as part of the pre-operative evaluation. [facility]LY [facility] Past Medical History Medical History Osteoarthritis Elevated lipids Essential hypertension Surgical History Surgical History Status post medial meniscectomy of left knee (~04/18/23) Family History Family History Father Hypertension Family history of chronic obstructive pulmonary disease, Onset Age: 72 Mother Cerebrovascular accident, Onset Age: 52 Social History Social History Smoking status: Never smoker Second hand tobacco smoke exposure: No Alcohol intake: current Drinks per week: 1 Alcohol use details: 3-5 BEERS/MONTH Substance use: never Substance use type: does not use Do You Feel Safe in your Home?: Yes Lack of Transportation: No Lack of Food: Never True Current Housing: I Have Housing Concerned About Future Housing: No Difficulty Paying Gas/Electric Bills: No Difficulty Paying for Meds: No Currently Unemployed: No Education: Master's Degree or Higher Difficulty w/ Childcare or Family Care: No Living arrangements: with family Additional living arrangements comments: Gender identity (if verbalized by the patient): Male Spiritual care concerns: No Anes - Eval Final PreProcedure Day of Procedure 08/08/24 10:26 Patient weight: overweight Heart: regular rate and rhythm Lungs: clear to auscultation Airway: Mallampati scale class II Neurological: alert and oriented Last oral intake: >/= 8 hours ASA classification: II Emergent: no Anesthetic plan: proceed Anesthesia type and monitoring: general ETT and standard monitoring Results Review: All pre-operative results and documents have been reviewed as part of the pre-operative evaluation. Informed Consent: The patient's anesthetic plan and its attendant risks and benefits were discussed with the patient/family/POA. Questions were solicited and answers provided to the satisfaction of the patient/family/POA.
--- NOTE | 2024-08-08 10:40 | WPDHPUPDATE1 ---
History and Physical Update Update Date/Time: 08/08/24 10:40 History and Physical has been reviewed, including an updated exam of the patient. There are NO changes in the patient's condition. Risks, benefits, and alternatives have been discussed and questions answered. Patient agrees to proceed with procedure.
--- NOTE | 2024-08-08 10:46 | WPDANESPNB ---
Anes - Peripheral Nerve Block Date/Time: 08/08/24 10:46 I have discussed with the patient/family/POA the placement of a peripheral nerve block for post-operative pain management, including associated risks, benefits, complications, and side effects. Alternative methods of post-operative analgesia were detailed. Questions were solicited and answers provided to the satisfaction of the patient/family/POA. Time-Out: A pre-procedural Time-Out was completed immediately before starting the procedure and confirmed: Patient Identification, Site, Procedure, Patient Position and the Availability of Requisite Equipment. Clinical Indications: Acute post-operative pain management requested by the operative surgeon. Nerve Block Insertion Note Anes-nerve block: interscalene right Patient position: supine Skin prep: chlorhexidine Needle: 22 gauge, stimulating, insulated echogenic needle. Needle length: 50 mm Technique: ultrasound Injectate: bupivacaine 0.5% with epi 5 mcg/ml (30cc no epi) Observations: tolerated well Complications: none Procedure start time:: 1038 Procedure end time:: 1045
[2024-08-08] MEDS: ceFAZolin 2 GM/D5W 50 ML 2 GM/50 ML BAG IVPB (11:14)
--- NOTE | 2024-08-08 12:36 | W.PM.PROC2 ---
Procedure Note - Detailed Date of Procedure 08/08/24 Pre-op Diagnosis Right shoulder biceps tendinosis, slap tear, impingment syndrome. Post-op Diagnosis Other (Right shoulder 1. Partial-thickness rotator cuff tear supraspinatus 2. Split tear of the biceps 3. Degenerative labral tear) Procedure Performed Right shoulder arthroscopic 1. Rotator cuff repair 2. Biceps tenodesis 3. Subacromial decompression 4. Labral debridement Surgeon Johan Whittaker MD Director Of Staff Development Heather Parra PA-C Anesthesia General and Regional (Interscalene block) Findings Mid grade partial-thickness tears of the supraspinatus. Low-grade on the articular side less than 15%, and mid grade on the bursal side approximately 20%. A horizontal mattress suture brought the bursal tissue back down anatomically very nicely. This was secured with a SwiveLock anchor laterally. There did appear to be definite bursal side impingement on the anterolateral acromion. Acromioplasty was performed with the arthroscopic bur. The subscapularis appeared healthy. Biceps was severely split and torn. It did show signs of fraying near the articular margin against the lesser tuberosity. Extensive SLAP tear and moderate diffuse labral tearing treated with debridement. The loop and tack system was used with a SwiveLock anchor to secure the biceps near the articular margin. The humeral cartilage was healthy. The glenoid showed mild grade 1 chondromalacia primarily centrally and grade 3 chondromalacia just along the posterior inferior margin of the glenoid. Description of Procedure Preoperative antibiotics were given. The patient was brought to the operating room. Careful positioning in the beach chair was accomplished. The head neck were carefully positioned. A small bump was placed under the shoulder. The shoulder was prepped and draped in the usual sterile fashion. Examination under anesthesia performed. There were no significant findings. Standard posterior and anterior arthroscopic portals were established. Gentle debridement of the posterior labrum and chondroplasty was performed on the glenoid. Biceps was clearly split tearing. It was secured with the loop and tack suture. The biceps was released from the SLAP tear which was gently debrided with the radiofrequency probe and shaver. A 4.75 SwiveLock anchor was inserted at the articular margin securing the biceps very nicely. The articular side of the supraspinatus had mild diffuse grade 1 fraying. The subscapularis appeared healthy. Attention was turned to the subacromial space. A complete bursectomy was performed. An accessory lateral portal was created. The acromion was clearly visualized. The coracoacromial ligament was released. Careful acromioplasty was performed. Loose bone fragments were carefully irrigated from the joint. The bursal supraspinatus was torn approximately 20%. It did appear to reduce quite nicely back to the footprint. The rest of the tissue looked very nice. The spinal needle was used to shuttle the tibia Passer from the visor portal. This created a very nice secure mattress suture of the bursal fibers. They were brought laterally to a 0.75 SwiveLock anchor. The cuff appeared anatomic. The arthroscopic instruments were removed. The wounds were closed with interrupted 3-0 Monocryl suture followed by Steri-Strips. A sterile dressing was applied with a sling. The patient was extubated and brought to the recovery room in stable condition. There were no complications. Implants [employer] SwiveLock anchor 4.7 mm diameter x2. Estimated Blood Loss 10 Drains No Packing No Pathology None sent Complications No immediate complications Condition Stable Disposition PACU [facility] Billing Surgery - Charge Forward: Surgery Billing
== END 2024-08-08 15:02 | disposition home or self-care (01) ==
PROVIDERS: PCP Family Medicine; Visit Provider Orthopaedic Surgery
PROC: (CPT 29805; principal; 2024-08-08 11:30)
DX: S43.431A Superior glenoid labrum lesion of right shoulder, initial encounter (principal); M75.21 Bicipital tendinitis, right shoulder; M75.41 Impingement syndrome of right shoulder; M75.111 Incomplete rotator cuff tear or rupture of right shoulder, not specified as traumatic; M67.813 Other specified disorders of tendon, right shoulder; I10 Essential (primary) hypertension; M94.211 Chondromalacia, right shoulder; M19.90 Unspecified osteoarthritis, unspecified site; G89.18 Other acute postprocedural pain; X58.XXXA Exposure to other specified factors, initial encounter; Z79.82 Long term (current) use of aspirin; Z79.891 Long term (current) use of opiate analgesic; Z98.890 Other specified postprocedural states; Z87.828 Personal history of other (healed) physical injury and trauma; Z82.49 Family history of ischemic heart disease and other diseases of the circulatory system; Z47.89 Encounter for other orthopedic aftercare
CPT/HCPCS: 64415; 29827; 29826; 29828; A4565; A9270; C1713; J0171; J0690; J1100; J1885; J2003; J2250; J2405; J2704; J3010; J7120